=== PATIENT | female | born 1985 | race American Indian/Alaskan Native ===

== ENCOUNTER 2016-10-22 07:44 | Outpatient (CLI) | payer MEDICAID ==
[2016-10-22 08:17] VITALS: BP 124/65
[2016-10-22] MEDS ORDERED: VISTARIL ONE (10:58)
[2016-10-22] MEDS ORDERED: VISTARIL PO ONE (11:30)
== END 2016-10-22 11:18 | disposition home or self-care (01) ==
LOC: TRG 07:44
PROVIDERS: ATTEND Obstetrics & Gynecology
DX: Z34.90 Encounter for supervision of normal pregnancy, unspecified, unspecified trimester (principal); Z3A.00 Weeks of gestation of pregnancy not specified
CPT/HCPCS: 59025; Q0177

== ENCOUNTER 2016-10-23 09:25 | Inpatient (IN) | payer MEDICAID ==
--- NOTE | 2016-10-23 10:02 | Procedure Note ---
OB Delivery Note - Delivery Date of Delivery: 10/23/16 Surgeon: AMARILYS CALVIN Estimated blood loss: 300cc - Vaginal Delivery presentation: vertex Delivery position: OA Intrapartum events: precipitous labor- <3hr Delivery induction: none Delivery monitor: none Route of delivery: Delivery placenta: spontaneous Episiotomy: none Delivery laceration: none Anesthesia: none - A at 1 minute: 9 at 5 minutes: 9 Infant Gender: Female (Del @ 09:33, weight is 7#15 or 3319 gms)
[2016-10-23] MEDS ORDERED: ZOFRAN IV PRN (10:09)
[2016-10-23] MEDS ORDERED: TUCKS PAD TP PRN (10:09)
[2016-10-23] MEDS ORDERED: MILK OF MAGNESIA PO PRN (10:09)
[2016-10-23] MEDS ORDERED: TYLENOL PO PRN (10:09)
[2016-10-23] MEDS ORDERED: DERMOPLAST TP PRN (10:09)
[2016-10-23] MEDS ORDERED: LANSINOH TP PRN (10:09)
[2016-10-23] MEDS ORDERED: DULCOLAX PR PRN (10:09)
[2016-10-23] MEDS ORDERED: ANUCORT-HC PR PRN (10:09)
[2016-10-23] MEDS ORDERED: PHENERGAN PR PRN (10:09)
[2016-10-23] MEDS ORDERED: BENADRYL PO PRN (10:09)
[2016-10-23] MEDS ORDERED: NORCO 5/325 PO PRN (10:09)
[2016-10-23] MEDS ORDERED: PHENERGAN PO PRN (10:09)
--- NOTE | 2016-10-23 10:09 | History and Physical Report ---
History of Present Illness Date of examination: 10/23/16 Date of admission: 10/23/16 09:25 Chief complaint: Precipitous delivery History of present illness: 31-year-old 001 at 40+ weeks presents with precipitous delivery, she is a [employer] patient. care unremarkable per patient. Past History Past Medical History: no pertinent history Past Surgical History: appendectomy [employer] History: denies: chlamydia, gonorrhea, HIV Social history: single. denies: smoking, alcohol abuse, prescription drug abuse , IV drug use - Obstetrical History Expected Date of Delivery: 10/21/16 Actual Gestation: 40 Week(s) 2 Day(s) : 2 Para: 1 Medications and Allergies Allergies Allergy/AdvReac Type Severity Reaction Status Date / Time Penicillins Allergy Swelling Verified 04/10/14 03:42 Home Medications Medication Instructions Recorded Confirmed Last Taken Type No Known Home Medications [No 04/16/14 04/16/14 Unknown History Reported Home Medications] Review of Systems Constitutional: no fever, no chills Cardiovascular: no chest pain, no syncope, no lightheadedness, no shortness of breath Respiratory: no excessive sputum, no shortness of breath, no dyspnea on exertion Gastrointestinal: no nausea, no vomiting - Physical Exam Abdomen: Positive: normal appearance, soft. Negative: tenderness, guarding, rigidity Results All other labs normal. Assessment and Plan PPD# 0: 31 y/o at 40+2 wks with PPT delivery -stable P: -Continue routine care -Anticipate discharge in 2448 hrs. - Patient Problems (1) Precipitous delivery, delivered (current hospitalization) Current Visit: Yes Status: Acute (2) 40 weeks gestation of Current Visit: Yes Status: Acute
[2016-10-23 10:18] LABS: Hematocrit 39.7 % (30.3-42.9); Hemoglobin 13.2 gm/dl (10.1-14.3)
[2016-10-23] MEDS ORDERED: SODIUM CHLORIDE FLUSH SYRINGE 10 ML IV NR (11:00)
[2016-10-23] MEDS ORDERED: PITOCin/NS 20 UNIT/1000ML DRIP 1,000 ML IV SCH (11:00)
[2016-10-23 11:51] LABS: Hematocrit 39.9 % (30.3-42.9); Hemoglobin 13.2 gm/dl (10.1-14.3); Mean Corpuscular HGB Conc 33 % (30-34); Mean Corpuscular Hemoglobin 30 pg (28-32); Mean Corpuscular Volume 90 fl (79-97); Platelet Count 169 K/mm3 (140-440); Red Blood Count 4.45 M/mm3 (3.65-5.03); Red Cell Distribution Width 14.1 % (13.2-15.2); White Blood Count 8.8 K/mm3 (4.5-11.0)
[2016-10-23] MEDS: MOTRIN PO SCH ×3 (12:19→23:35)
[2016-10-23 22:59] LABS: Hematocrit 34.3 % (30.3-42.9); Hemoglobin 11.3 gm/dl (10.1-14.3)
[2016-10-23] MEDS: FEOSOL PO SCH (23:35)
[2016-10-23] MEDS: COLACE PO SCH (23:35)
[2016-10-24] MEDS: MOTRIN PO SCH ×2 (06:15→12:45)
[2016-10-24 08:15] VITALS: BP 119/68
[2016-10-24] MEDS: COLACE PO SCH (09:52)
[2016-10-24] MEDS: FEOSOL PO SCH (09:52)
[2016-10-24] MEDS ORDERED: PRENATAL VITAMIN PO SCH (10:00)
--- NOTE | 2016-10-24 11:28 | Progress Note ---
Assessment and Plan A: PPD #1 stable P: Discharge home today Subjective - Subjective Date of service: 10/24/16 Principal diagnosis: Patient reports: appetite normal [place]: doing well Objective - Vital Signs Latest vital signs: Vital Signs Temp Pulse Pulse Resp BP 10/24/16 07:30 98.6 F 59 L 20 119/68 10/23/16 20:00 98.3 F 55 L 18 119/76 10/23/16 17:00 97.8 F 50 L 18 121/68 10/23/16 11:50 98.4 F 45 L 16 118/72 Intake and Output 10/23/16 10/24/16 10/24/16 22:59 06:59 14:59 Intake Total 360 360 Output Total 700 Balance -340 360 Intake: Oral 360 360 Output: Urine 700 Void 700 Other: Total, Intake Amount 360 120 Total, Output Amount 700 # Voids Void 1 - Exam Breasts: Present: deferred Cardiovascular: Present: Regular rate Lungs: Present: Clear to auscultation Abdomen: Present: soft Vulva: both: normal Uterus: Present: fundal height below umbilicus Extremities: Present: normal Deep Tendon Reflex Grade: Normal +2
--- NOTE | 2016-10-24 11:32 | Discharge Summary ---
Providers - Providers Date of Admission: 10/23/16 09:25 Date of discharge: 10/24/16 Attending physician: TALYA JEAN MD Primary care physician: TALYA JEAN MD Hospitalization Reason for admission: active labor Delivery: Episiotomy: none Laceration: none Other procedures: none complications: none Discharge diagnosis: IUP at term delivered Eva baby: female Hospital course: uneventful Condition at discharge: Good Disposition: DISCHARGED TO HOME OR SELFCARE Plan - Provider Discharge Summary Activity: routine, no sex for 6 weeks, no strenuous exercise Diet: routine Instructions: routine Additional instructions: [] Smoking cessation referral if applicable(refer to patient education folder for contact #) [] Refer to [facility] Booklet Call your doctor immediately for: * Fever > 100.5 * Heavy vaginal bleeding ( >1 pad per hour) * Severe persistent headache * Shortness of breath * Reddened, hot, painful area to leg or breast * Drainage or odor from incision. * Keep incision clean and dry at all times and follow doctor's instructions regarding bathing/showering - Follow up plan Follow up: [facility] [Provider Group] - 6 Weeks
== END 2016-10-24 15:14 | disposition home or self-care (01) | DRG 775 ==
LOC: LD 09:25 → OB 11:41
PROVIDERS: ADMIT Obstetrics & Gynecology; ATTEND Obstetrics & Gynecology
PROC: 10E0XZZ Delivery of Products of Conception, External Approach (ICD-10-PCS; principal; 2016-10-23)
DX: O62.3 Precipitate labor (principal); O48.0 Post-term pregnancy; Z3A.40 40 weeks gestation of pregnancy; Z37.0 Single live birth; Z90.49 Acquired absence of other specified parts of digestive tract
CPT/HCPCS: 36415; 85014; 85018; 85027; 86850; 86900; 86901

== ENCOUNTER 2017-01-02 10:18 | Inpatient (IN) | payer MEDICAID ==
[2017-01-02 11:16] LABS: Basophils % (Auto) 0.4 % (0.0-1.8); Eosinophils % (Auto) 0.1 % (0.0-4.3); Hematocrit 41.1 % (30.3-42.9); Hemoglobin 13.3 gm/dl (10.1-14.3); Mean Corpuscular HGB Conc 32 % (30-34); Mean Corpuscular Hemoglobin 28 pg (28-32); Mean Corpuscular Volume 88 fl (79-97); Platelet Count 173 K/mm3 (140-440); Red Blood Count 4.69 M/mm3 (3.65-5.03); Red Cell Distribution Width 12.6 % (13.2-15.2); White Blood Count 14.7 K/mm3 (4.5-11.0)
[2017-01-02 11:25] LABS: Anion Gap 18 mmol/L; BUN/Creatinine Ratio 15.71; Blood Urea Nitrogen 11 mg/dL (7-17); Calcium 9.2 mg/dL (8.4-10.2); Carbon Dioxide 21 mmol/L (22-30); Glucose 102 mg/dL (65-100); Potassium 4.1 mmol/L (3.6-5.0); Sodium 134 mmol/L (137-145)
[2017-01-02] MEDS ORDERED: TYLENOL ONE (22:37)
[2017-01-02] MEDS ORDERED: NACL 0.9% 1000 ML 1,000 ML IV ONE (22:46)
[2017-01-02] MEDS ORDERED: ZOFRAN IV ONE (22:46)
[2017-01-02] MEDS ORDERED: TYLENOL PO ONE (22:46)
[2017-01-02] MEDS ORDERED: MORPHINE IV ONE (22:46)
--- NOTE | 2017-01-02 22:51 | Emergency Department Report ---
HPI - General Chief Complaint: Chest Pain Time Seen by Provider: 01/02/17 22:40 - HPI HPI: Room 4 The patient is a 31-year-old female presenting with a chief complaint of chest pain shortness of breath syncope. The patient is 2 months states she was awakened this morning at 07:00 substernal chest pain. Patient states she began to feel short of breath and she stood up and felt lightheaded and lost consciousness. The patient does admit to a pleuritic component. Patient does admit to nausea vomiting and diaphoresis with her chest pain. The patient currently describes the chest pain is throbbing in nature. The patient admits to a cough that is nonproductive. The patient currently gives her pain a score of 10/10. The patient states she is not breast-feeding Location: Chest Duration: [see above] Quality: Throbbing Severity: 10/10 Modifying factors: [see above] Context: [see above] Mode of transportation: Unknown ED Past Medical Hx - Past Medical History Previous Medical History?: No - Surgical History Past Surgical History?: Yes Hx Appendectomy: Yes - Family History Family history: no significant - Social History Smoking Status: Current Every Day Smoker (1/2 pack per day) Substance Use Type: None (denies illicit drug use) - Medications Home Medications: Home Medications Medication Instructions Recorded Confirmed Last Taken Type No Known Home Medications [No 04/16/14 04/16/14 Unknown History Reported Home Medications] ED Review of Systems ROS: Stated complaint: CHEST PAIN Other details as noted in HPI Comment: All other systems reviewed and negative Constitutional: diaphoresis, fever Eyes: denies: eye pain, eye discharge, vision change ENT: denies: ear pain, throat pain Respiratory: cough, shortness of breath Cardiovascular: chest pain Endocrine: no symptoms reported Gastrointestinal: nausea, vomiting Genitourinary: denies: urgency, dysuria, discharge Musculoskeletal: denies: back pain, joint swelling, arthralgia Skin: denies: rash, lesions Neurological: other (syncope). denies: headache, weakness, paresthesias Psychiatric: denies: anxiety, depression Hematological/Lymphatic: denies: easy bleeding, easy bruising Physical Exam - Physical Exam Vital Signs: Vital Signs 01/02/17 01/02/17 01/02/17 10:32 20:02 22:44 Temperature 99.8 F H 100.0 F H 102.7 F H Pulse Rate 93 H 114 H Respiratory 24 20 Rate Blood Pressure 132/92 124/82 O2 Sat by Pulse 97 96 Oximetry Physical Exam: GENERAL: The patient is well-developed well-nourished female lying on stretcher. Be in moderate discomfort. [] HEENT: Normocephalic. Atraumatic. Extraocular motions are intact. Patient has moist mucous membranes. NECK: Supple. Trachea midline CHEST/LUNGS: Poor inspiratory effort. Decreased breath sounds throughout. There is no respiratory distress noted. HEART/CARDIOVASCULAR: Regular. There is tachycardia. There is no gallop rub or murmur. ABDOMEN: Abdomen is soft, nontender. Patient has normal bowel sounds. There is no abdominal distention. SKIN: There is no rash. There is no edema. There is no diaphoresis. NEURO: The patient is awake, alert, and oriented. The patient is cooperative. The patient has normal speech MUSCULOSKELETAL: There is no evidence of acute injury. ED Course Vital Signs 01/02/17 01/02/17 01/02/17 10:32 20:02 22:44 Temperature 99.8 F H 100.0 F H 102.7 F H Pulse Rate 93 H 114 H Respiratory 24 20 Rate Blood Pressure 132/92 124/82 O2 Sat by Pulse 97 96 Oximetry ED Medical Decision Making - Lab Data Result diagrams: 01/02/17 10:49 01/02/17 10:49 Laboratory Tests 01/02/17 01/02/17 01/02/17 10:49 10:49 13:51 WBC 14.7 H RBC 4.69 Hgb 13.3 Hct 41.1 MCV 88 MCH 28 MCHC 32 RDW 12.6 L Plt Count 173 Lymph % (Auto) 9.2 L [place] % (Auto) 5.8 Eos % (Auto) 0.1 Baso % (Auto) 0.4 Lymph # 1.4 [place] # 0.9 H Eos # 0.0 Baso # 0.1 Seg Neutrophils % 84.5 H Seg Neutrophils # 12.4 H Carbon Dioxide 21 L Anion Gap 18 BUN 11 Creatinine 0.7 Estimated GFR > 60 BUN/Creatinine Ratio 15.71 Glucose 102 H Calcium 9.2 Troponin T < 0.010 < 0.010 01/02/17 15:30 WBC RBC Hgb Hct MCV MCH MCHC RDW Plt Count Lymph % (Auto) [place] % (Auto) Eos % (Auto) Baso % (Auto) Lymph # [place] # Eos # Baso # Seg Neutrophils % Seg Neutrophils # Carbon Dioxide Anion Gap BUN Creatinine Estimated GFR BUN/Creatinine Ratio Glucose Calcium Troponin T < 0.010 Sodium 134, potassium 4.1, chloride 99.0 - EKG Data -: EKG Interpreted by Me EKG shows normal: sinus rhythm Rate: normal - EKG Data When compared to previous EKG there are: previous EKG unavailable Interpretation: other (ischemic changes seen) - Radiology Data Radiology results: report reviewed (CT chest), image reviewed (CT chest) CT chest (read by radiologist)-right middle and lower lobe pneumonia. No evidence of pulmonary. - Differential Diagnosis pneumonia, PE, ACS, pericarditis, GERD Critical care attestation.: If time is entered above; I have spent that time in minutes in the direct care of this critically ill patient, excluding procedure time. ED Disposition Clinical Impression: Chest pain, Syncope, Right middle lobe pneumonia, Right lower lobe pneumonia, Fever, Leukocytosis Disposition: OP ADMITTED IP TO THIS HOSP Is pt being admited?: Yes Does the pt Need Aspirin: Yes Condition: Fair Instructions: Chest Pain (ED), Syncope (ED), Bacterial Pneumonia (ED) Referrals: PRIMARY CARE, [Primary Care Provider] - 3-5 Days Time of Disposition: 01:16 (hospitalist paged)
[2017-01-02] MEDS ORDERED: NACL ONE (23:20)
[2017-01-02] MEDS ORDERED: MORPHINE ONE (23:23)
--- NOTE | 2017-01-03 00:37 | Cat Scan Report ---
FINAL REPORT PROCEDURE: CT ANGIO CHEST TECHNIQUE: Computerized tomographic angiography of the chest was performed after the IV injection of iodinated nonionic contrast including image processing. The image data was postprocessed using 2-dimensional multiplanar reformatted (MPR) and 3-dimensional (MIP and/or volume rendered) techniques. HISTORY: chest pain, fever, syncope COMPARISON: No prior studies are available for comparison. FINDINGS: Heart and pericardium: Normal. Thoracic aorta: Normal. Pulmonary vasculature: Normal. Lymph nodes: No enlarged thoracic lymph nodes. Lungs: There is a consolidating infiltrate identified in the right middle lung. Mild infiltrate right lower lung. The left lung is clear. The central airway is patent.. Pleural space: No effusion, thickening, or pneumothorax. Musculoskeletal structures: No significant abnormality. Upper abdominal structures: No significant abnormality. IMPRESSION: Right middle and lower lung pneumonia. No evidence of pulmonary arterial emboli.
[2017-01-03] MEDS ORDERED: LEVAQUIN 750MG/150ML 750 MG/150 ML BAG IV ONE (01:13)
[2017-01-03] MEDS ORDERED: DULCOLAX PR PRN (02:06)
[2017-01-03] MEDS ORDERED: PERCOCET 5/325 PO PRN (02:06)
[2017-01-03] MEDS ORDERED: ZOFRAN IV PRN (02:06)
[2017-01-03] MEDS ORDERED: PROVENTIL IH PRN (02:06)
[2017-01-03] MEDS ORDERED: TYLENOL PO PRN (02:06)
[2017-01-03] MEDS ORDERED: MILK OF MAGNESIA PO PRN (02:06)
--- NOTE | 2017-01-03 02:20 | History and Physical Report ---
History of Present Illness Date of examination: 01/03/17 History of present illness: 31-year-old woman, 3 months , no medical problems comes emergency room today because she passed out while she was feeding her daughter, syncopal episode lasted for 15 seconds. Patient also complaining of chest pain and epigastric area she described as a sharp, constant pain, intensity 5/10, worse with coughing. Patient also gets right side pain when she coughs. She has been febrile in the emergency room, denies any chills Patient denies chest pain, palpitation, shortness of breath, cough, abdominal pain, hematochezia, dysuria, frequency, focal weakness, dysarthria, fever chills , polydipsia polyuria, hot or cold intolerance, easy bruisability, or rash or bleeding from mucosal membrane, rhinorrhea, epistaxis, earache, tinnitus, blurry vision, eye discharge, anxiety, depression. Other review of systems negative PAST SURGICAL HISTORY: None SOCIAL HISTORY: Smoke a pack a day, no alcohol or drugs FAMILY HISTORY: Hypertension Medications and Allergies Allergies Allergy/AdvReac Type Severity Reaction Status Date / Time Penicillins Allergy Swelling Verified 04/10/14 03:42 Home Medications Medication Instructions Recorded Confirmed Last Taken Type ALBUTEROL Inhaler [ProAir HFA 2 puff IH QID PRN #1 unit 01/05/17 Unknown Rx Inhaler] Acetaminophen [Acetaminophen TAB] 650 mg PO Q4H PRN #30 tablet 01/05/17 Unknown Rx Levofloxacin [Levaquin TAB] 750 mg PO Q24HR #5 day 01/05/17 Unknown Rx oxyCODONE /ACETAMINOPHEN [Percocet 1 tab PO Q6H PRN #15 tablet 01/05/17 Unknown Rx 5/325 mg] Active Meds: Active Medications Levofloxacin/Dextrose (Levaquin 750mg/150ml) 750 mg in 150 mls @ 100 mls/hr IV ONCE ONE Stop: 01/03/17 02:42 Last Admin: 01/03/17 02:00 Dose: 100 mls/hr Exam - Physical Exam Narrative exam: Gen. appearance: Patient lying in bed, no apparent distress HEENT: Normocephalic, atraumatic, pupils equally round and reactive to light, extraocular movement intact, and no sclericterus,. No JVD or thyromegaly or nodule,neck supple, no carotid bruit ,mucous membranes moist, no exudate or erythema Heart: S1, S2, regular rate and rhythm Lungs: Crackles on The Right, breathing comfortable Abdomen: Positive bowel sounds, nontender, nondistended, no organomegaly Extremity: No edema, cyanosis, clubbing Skin: No rash, nodules, warm, dry Neuro: Oriented 3, cranial nerves II-12 intact, speech is fluent, motor and sensory intact - Constitutional Vitals: Temp Pulse Resp BP Pulse Ox 99.5 F 89 27 H 131/92 95 01/03/17 01:54 01/03/17 01:54 01/03/17 01:41 01/03/17 01:41 01/03/17 01:41 Results - Labs CBC & Chem 7: 01/05/17 05:08 01/05/17 05:08 Labs: Abnormal lab results 01/02/17 01/02/17 Range/Units 10:49 10:49 WBC 14.7 H (4.5-11.0) K/mm3 RDW 12.6 L (13.2-15.2) % Lymph % (Auto) 9.2 L (13.4-35.0) % [place] # 0.9 H (0.0-0.8) K/mm3 Seg Neutrophils % 84.5 H (40.0-70.0) % Seg Neutrophils # 12.4 H (1.8-7.7) K/mm3 Carbon Dioxide 21 L (22-30) mmol/L Glucose 102 H (65-100) mg/dL - Imaging and Cardiology CT scan - chest: report reviewed Assessment and Plan Hospital-acquired pneumonia Pleuritic chest pain secondary to #1 Syncope Admits medicine Start IV antibiotic, obtain sputum culture, blood culture Check cardiac enzymes, echo, consult cardiology Start DVT prophylaxis
[2017-01-03 03:27] LABS: Bacteria,Urine 1+ /HPF (Negative); Bilirubin,Urine NEG (Negative); Blood,Urine SM (Negative); Ketones,Urine NEG (Negative); Leukocyte Esterase,Urine TR (Negative); Mucus,Urine FEW /HPF; Nitrite,Urine NEG (Negative); Protein,Urine <15 mg/dL mg/dL (Negative); Urobilinogen,Urine < 2.0 mg/dL (<2.0)
[2017-01-03 06:57] LABS: Creatine Kinase MB < 1.0 ng/mL (0.0-4.0)
[2017-01-03 08:41] LABS: Creatine Kinase 86 units/L (30-135)
[2017-01-03] MEDS ORDERED: LOVENOX SUB-Q SCH (10:00)
[2017-01-03] MEDS: LEVAQUIN 750MG/150ML 750 MG/150 ML BAG IV SCH (11:00)
--- NOTE | 2017-01-03 11:11 | Admit Criteria Form ---
Admission Criteria Documentation: PNEUMONIA, COMMUNITY ACQUIRED Clinical Indications for Admission to Inpatient Care ( Place 'X' for any and all applicable criteria): Admission is indicated for ANY ONE of the following (1)(2)(3): [ ]I. Hypoxemia indicated by ANY ONE of the following: [ ]a) Oxygen saturation less than 90% while breathing room air [ ]b) PO2 less than 60 mm Hg (8.0 kPa) while breathing room air [ ]c) Chronic lung disease with significant deterioration from baseline oxygenation [X]II. Appropriate diagnostic testing and treatment unavailable in outpatient or recovery facility (eg,testing or infection control measures unavailable(10) [ ]III. Moderate-risk or high-risk category patients (Pneumonia Severity Index (PSI) class IV or V, or CURB-65 score of 3 or greater). [ ]IV. Outpatient treatment failure as indicated by ANY ONE of the following(9) : [ ]a) Failure to respond to antibiotic (eg, resistant organism) [ ]b) Clinically significant adverse effects from medication (eg, vomiting) [ ]c) Complications of pneumonia (eg, empyema, bacteremia) [ ]d) Significant worsening of comorbid cond necessitating inpatient care (eg, chronic heart failure) [ ]V. Intermediate-risk category patients (eg, PSI class III or CURB-65 score 2) who do not improve with initial therapy and observation. [ ]. Immunocompromised patients (eg, AIDS, chronic steroid use) at moderate or high risk based on clinical evaluation. [ ]VII. Complicated pleural effusions (eg, exudative, loculated) [ ]VIII.Hemodynamic instability [ ] IX. Altered mental status that is severe or persistent. [ ]X. Dehydration that is severe or persistent. [ ]XI. Bacteremia [ ]XII. Respiratory finding (eg. tachypnea) that do not respond to outpatient or observation care treatment Extended stay beyond goal length of stay may be needed for (20) [ ]a) Unclear diagnosis [ ]b) Pleural disease [ ]c) Severe pneumonia or treatment failure (25 [ ]d) Respiratory failure (anticipate invasive or noninvasive ventilatory support) [ ]e) Abnormal serum electrolytes (serum Na concentration less than 135 mEq/L (mmol/L) (32)(33) [ ]f) Clinically significant comorbid illness (eg, heart failure, atrial fibrillation with rapid heart rate, alcohol withdrawal, renal insufficiency)(34)(35) [ ]g) Comorbid acute exacerbation of COPD(36) [ ]h) Concomitant diagnosis of malignancy that may be associated with malnutrition, immunologic impairment, or bronchial obstruction. [ ]i) Concomitant altered mental status [ ]j) Culture-identified Gram-negative or antibiotic-resistant organism (eg, Pseudomonas, methicillin-resistant Staphylococcus aureus)(30) [ ]k) Healthcare-associated pneumonia The original [employer] content created by [employer] has been revised. The portions of the content which have been revised are identified through the use of italic text or in bold, and [facility] has neither reviewed nor approved the modified material. All other unmodified content is copyright [employer]. Please see references footnoted in the original [facility] edition 2016 Admission Criteria Met: Yes
[2017-01-03] MEDS ORDERED: FLUARIX QUAD 2016-2017(36 MOS+) IM ONE (12:00)
--- NOTE | 2017-01-03 13:07 | Consultation ---
History of Present Illness Consult date: 01/03/17 Consult reason: syncope History of present illness: At about 6 AM yesterday, she claims that she woke up from her sleep with a throbbing substernal chest pain. Upon standing up, she developed shortness of breath. The next thing she remembers is waking up on the floor. She claims that she was lightheaded upon arousal. She has continued to experience recurrent chest pain with a pleuritic component. She claims that she had some chills and fever after the event. In the ER, chest CT scan was negative for pulmonary embolism. However, it revealed right middle lobe and left lower lobe pneumonia. Cardiac enzymes are negative for acute myocardial infarction. Notably, she delivered a baby on 10/23/2016. Past History Past Medical History: No medical history Past Surgical History: appendectomy Social history: lives with family, smoking. denies: alcohol abuse Family history: no significant family history Medications and Allergies Allergies Allergy/AdvReac Type Severity Reaction Status Date / Time Penicillins Allergy Swelling Verified 04/10/14 03:42 Home Medications Medication Instructions Recorded Confirmed Last Taken Type No Known Home Medications [No 04/16/14 01/02/17 Unknown History Reported Home Medications] Active Meds: Active Medications Acetaminophen (Tylenol) 650 mg PO Q4H PRN PRN Reason: Pain MILD(1-3)/Fever >100.5/PATEL Albuterol (Proventil) 2.5 mg IH Q3HRT PRN PRN Reason: Shortness Of Breath Bisacodyl (Dulcolax) 10 mg [place] QDAY PRN PRN Reason: Constipation unrelieved by MOM Enoxaparin Sodium (Lovenox) 40 mg SUB-Q QDAY [facility] Last Admin: 01/03/17 10:59 Dose: 40 mg Levofloxacin/Dextrose (Levaquin 750mg/150ml) 750 mg in 150 mls @ 100 mls/hr IV Q24HR APARNA PRN Reason: Protocol Last Admin: 01/03/17 11:00 Dose: 100 mls/hr Magnesium Hydroxide (Milk Of Magnesia) 30 ml PO Q4H PRN PRN Reason: Constipation Ondansetron HCl (Zofran) 4 mg IV Q8H PRN PRN Reason: N/V unrelieved by Reglan Oxycodone/Acetaminophen (Percocet 5/325) 1 tab PO Q6H PRN PRN Reason: Pain, Moderate (4-6) Last Admin: 01/03/17 08:38 Dose: 1 tab Review of Systems Constitutional: fever, chills Ears, nose, mouth and throat: no ear pain, no ear discharge, no sore throat Cardiovascular: chest pain, syncope, no orthopnea, no palpitations, no edema Respiratory: cough with sputum, shortness of breath Gastrointestinal: no abdominal pain, no nausea, no vomiting, no diarrhea, no constipation Genitourinary Female: no dysuria, no urinary frequency Rectal: no pain, no bleeding Musculoskeletal: no neck stiffness, no neck pain, no myalgias Integumentary: no rash, no pruritis Neurological: no weakness, no parathesias, no numbness, no tingling, no headaches Endocrine: no cold intolerance, no heat intolerance Hematologic/Lymphatic: no easy bruising, no easy bleeding Allergic/Immunologic: no urticaria, no wheezing Physical Examination Vital Signs Last Vital Signs Temp 97.7 F 01/03/17 09:30 Pulse 110 H 01/03/17 09:30 Resp 16 01/03/17 09:30 BP 135/82 01/03/17 09:30 Pulse Ox 95 01/03/17 09:33 General appearance: no acute distress HEENT: Positive: EOMI, Normocephaly, Mucus Membranes Moist Neck: Positive: neck supple, trachea midline Cardiac: Positive: Reg Rate and Rhythm, S1/S2 Lungs: Positive: Rhonchi (bilaterally) Neuro: Positive: Grossly Intact Abdomen: Positive: Soft, Active Bowel Sounds. Negative: Tender Skin: Positive: Clear. Negative: Rash Musculoskeletal: Normal Range of Motion Extremities: Present: normal. Absent: edema Results 01/02/17 10:49 01/02/17 10:49 Cardiac Enzymes 01/03/17 Range/Units 05:59 CK-MB (CK-2) < 1.0 (0.0-4.0) ng/mL - Imaging and Cardiology EKG: image reviewed EKG interpretations - Telemetry EKG Rhythm: Sinus Rhythm - EKG Sinus rhythms and dysrhythmias: sinus rhythm Myocardial infarction: septal CT (old age or ind Assessment and Plan The exact etiology of her syncope is uncertain. Obtain orthostatic parameters and echocardiogram. - Patient Problems (1) Syncope Current Visit: Yes Status: Acute Qualifiers: Syncope type: S Encounter type: E (2) Atypical chest pain Current Visit: Yes Status: Acute (3) Bilateral pneumonia Current Visit: Yes Status: Acute Qualifiers: Pneumonia type: P Aspiration pneumonia type: A Lung location: L
[2017-01-03 14:31] LABS: Creatine Kinase 73 units/L (30-135)
[2017-01-03 14:51] LABS: Creatine Kinase MB < 1.0 ng/mL (0.0-4.0)
--- NOTE | 2017-01-03 15:06 | Event Note ---
Date: 01/03/17 Pt seen and examined. 31-year-old woman, 3 months delivered baby on 10/23/16, no past medical problems comes emergency room because of an syncopal episode while she was feeding her daughter, syncopal episode lasted for 15 seconds. CTA chest in the Er showed Rt middle and lower lobe PNA, temp of 102.7 and elevated white count. Cont current mx for sepsis (present since admission) with PNA as dictated in the HPI.
[2017-01-04 05:58] LABS: Basophils % (Auto) 0.4 % (0.0-1.8); Eosinophils % (Auto) 0.1 % (0.0-4.3); Hematocrit 37.8 % (30.3-42.9); Hemoglobin 12.4 gm/dl (10.1-14.3); Mean Corpuscular HGB Conc 33 % (30-34); Mean Corpuscular Hemoglobin 29 pg (28-32); Mean Corpuscular Volume 87 fl (79-97); Platelet Count 136 K/mm3 (140-440); Red Blood Count 4.34 M/mm3 (3.65-5.03); Red Cell Distribution Width 12.4 % (13.2-15.2)
[2017-01-04 06:23] LABS: Anion Gap 18 mmol/L; Blood Urea Nitrogen 6 mg/dL (7-17); Calcium 9.1 mg/dL (8.4-10.2); Carbon Dioxide 21 mmol/L (22-30); Chloride 100.4 mmol/L (98-107); Glucose 91 mg/dL (65-100); Potassium 3.7 mmol/L (3.6-5.0); Sodium 136 mmol/L (137-145)
[2017-01-04] MEDS: LEVAQUIN 750MG/150ML 750 MG/150 ML BAG IV SCH (09:47)
--- NOTE | 2017-01-04 11:42 | Progress Note ---
Assessment and Plan Obtain orthostatic parameters. Continue current management. - Patient Problems (1) Syncope Current Visit: Yes Status: Acute Qualifiers: Syncope type: S Encounter type: E (2) Atypical chest pain Current Visit: Yes Status: Acute (3) Bilateral pneumonia Current Visit: Yes Status: Acute Qualifiers: Pneumonia type: P Aspiration pneumonia type: A Lung location: L Subjective Date of service: 01/04/17 Principal diagnosis: Syncope, Atypical CP, Pneumonia Interval history: She still has intermittent chest pain. Echocardiogram was reviewed which showed normal LV systolic function. Orthostatic parameters were not obtained as ordered yesterday. Objective Vital Signs Last Vital Signs Temp 98.5 F 01/04/17 08:33 Pulse 70 01/04/17 10:00 Resp 20 01/04/17 10:00 BP 128/86 01/04/17 08:33 Pulse Ox 98 01/04/17 10:00 - Physical Examination General: No Apparent Distress HEENT: Positive: EOMI, Normocephaly, Mucus Membranes Moist Neck: Positive: neck supple, trachea midline Cardiac: Positive: Reg Rate and Rhythm, S1/S2 Lungs: Positive: Rhonchi Neuro: Positive: Grossly Intact Abdomen: Positive: Soft, Active Bowel Sounds. Negative: Tender Skin: Positive: Clear. Negative: Rash Musculoskeletal: Normal Range of Motion Extremities: Present: normal. Absent: edema - Labs and Meds Cardiac Enzymes 01/03/17 Range/Units 13:54 CK-MB (CK-2) < 1.0 (0.0-4.0) ng/mL CBC 01/04/17 Range/Units 04:50 WBC 16.0 H (4.5-11.0) K/mm3 RBC 4.34 (3.65-5.03) M/mm3 Hgb 12.4 (10.1-14.3) gm/dl Hct 37.8 (30.3-42.9) % Plt Count 136 L (140-440) K/mm3 Lymph # 1.2 (1.2-5.4) K/mm3 [place] # 0.8 (0.0-0.8) K/mm3 Eos # 0.0 (0.0-0.4) K/mm3 Baso # 0.1 (0.0-0.1) K/mm3 Comprehensive Metabolic Panel 01/04/17 Range/Units 04:50 Sodium 136 L (137-145) mmol/L Potassium 3.7 (3.6-5.0) mmol/L Chloride 100.4 (98-107) mmol/L Carbon Dioxide 21 L (22-30) mmol/L BUN 6 L (7-17) mg/dL Creatinine 0.5 L (0.7-1.2) mg/dL Glucose 91 (65-100) mg/dL Calcium 9.1 (8.4-10.2) mg/dL - Imaging and Cardiology EKG: image reviewed - EKG Sinus rhythms and dysrhythmias: sinus rhythm Myocardial infarction: septal AR (old age or ind
--- NOTE | 2017-01-04 15:14 | Progress Note ---
Assessment and Plan Assessment and plan: Patient is a 31-year-old woman who is 3 months presents with syncopal episode. She had shortness of breath with severe pruritic cough. Then She stood up to walk to go get her baby a bottle of milk when she developed lightheadedness and transient loss of consciousness. CTA of the chest showed right middle and lower lobe pneumonia but no PE. Echocardiogram shows trace MR, mild TR estimated EF 55-60% 1. Sepsis due to right middle and lower lobe pneumonia, aspiration type: IV antibiotics, she is on 2 L oxygen which on a wean off, possibly acute hypoxic respiratory failure present on admission the pulse ox under 90% 2. Syncopal, Cardiology is evaluating. 3. Thrombocytopenia, too acute to be HIT, will stopped Lovenox and monitor try to wean off o2 anticipate discharge in 1-2 days orthostatic ordered by Cardiology. History Interval history: Patient seen and examined. Follow up on syncope. Overnight uneventful. No cp, sob, n/v or severe headaches. Imaging, old records, testing, labs, nursing notes reviewed. Plan discussed with patient. Patient is on 2 L oxygen Hospitalist Physical - Physical exam Narrative exam: GEN: WDWN, NAD, AWAKE, ALERT, ORIENTATED 3 HEENT: NCAT, PERRL, EOMI, OP CLEAR NECK: SUPPLE, NO THYROMEGALY, NO JVD, NO LAD CVS: RRR, NORMAL S1S2 LUNGS/CHEST: Bibasilar crackles with coarse right sided breath sounds, NORMAL CHEST EXPANSION B, GOOD AIR ENTRY B ABD: SOFT NTND, GBS, NO REBOUND OR GUARDING EXT/SKIN: NO SIGNIFICANT EDEMA OR RASH MSK: FROM X 4 EXTREMITIES NEURO: CN 2-12 GROSSLY INTACT, NO new FOCAL DEFICITS PSY: CALM - Constitutional Vitals: Temp Pulse Resp BP Pulse Ox 98.2 F 75 20 111/72 97 01/04/17 13:02 01/04/17 13:02 01/04/17 13:02 01/04/17 13:02 01/04/17 13:02 General appearance: Present: no acute distress Results - Labs CBC & Chem 7: 01/04/17 04:50 01/04/17 04:50 Labs: Laboratory Last Values WBC 16.0 K/mm3 (4.5-11.0) H 01/04/17 04:50 RBC 4.34 M/mm3 (3.65-5.03) 01/04/17 04:50 Hgb 12.4 gm/dl (10.1-14.3) 01/04/17 04:50 Hct 37.8 % (30.3-42.9) 01/04/17 04:50 MCV 87 fl (79-97) 01/04/17 04:50 MCH 29 pg (28-32) 01/04/17 04:50 MCHC 33 % (30-34) 01/04/17 04:50 RDW 12.4 % (13.2-15.2) L 01/04/17 04:50 Plt Count 136 K/mm3 (140-440) L 01/04/17 04:50 Lymph % (Auto) 7.6 % (13.4-35.0) L 01/04/17 04:50 [place] % (Auto) 5.1 % (0.0-7.3) 01/04/17 04:50 Eos % (Auto) 0.1 % (0.0-4.3) 01/04/17 04:50 Baso % (Auto) 0.4 % (0.0-1.8) 01/04/17 04:50 Lymph # 1.2 K/mm3 (1.2-5.4) 01/04/17 04:50 [place] # 0.8 K/mm3 (0.0-0.8) 01/04/17 04:50 Eos # 0.0 K/mm3 (0.0-0.4) 01/04/17 04:50 Baso # 0.1 K/mm3 (0.0-0.1) 01/04/17 04:50 Seg Neutrophils % 86.8 % (40.0-70.0) H 01/04/17 04:50 Seg Neutrophils # 13.9 K/mm3 (1.8-7.7) H 01/04/17 04:50 Sodium 136 mmol/L (137-145) L 01/04/17 04:50 Potassium 3.7 mmol/L (3.6-5.0) 01/04/17 04:50 Chloride 100.4 mmol/L (98-107) 01/04/17 04:50 Carbon Dioxide 21 mmol/L (22-30) L 01/04/17 04:50 Anion Gap 18 mmol/L 01/04/17 04:50 BUN 6 mg/dL (7-17) L 01/04/17 04:50 Creatinine 0.5 mg/dL (0.7-1.2) L 01/04/17 04:50 Estimated GFR > 60 ml/min 01/04/17 04:50 BUN/Creatinine Ratio 12.00 % 01/04/17 04:50 Glucose 91 mg/dL (65-100) 01/04/17 04:50 Calcium 9.1 mg/dL (8.4-10.2) 01/04/17 04:50 Total Creatine Kinase 73 units/L (30-135) 01/03/17 13:54 CK-MB (CK-2) < 1.0 ng/mL (0.0-4.0) 01/03/17 13:54 CK-MB (CK-2) Rel Index 1.3 (0-4) 01/03/17 13:54 Troponin T < 0.010 ng/mL (0.00-0.029) 01/03/17 13:54 Urine Color Straw (Yellow) 01/03/17 02:30 Urine Turbidity Clear (Clear) 01/03/17 02:30 Urine pH 6.0 (5.0-7.0) 01/03/17 02:30 Ur Specific [place] 1.043 (1.003-1.030) H 01/03/17 02:30 Urine Protein <15 mg/dl mg/dL (Negative) 01/03/17 02:30 Urine Glucose (UA) Neg mg/dL (Negative) 01/03/17 02:30 Urine Ketones Neg mg/dL (Negative) 01/03/17 02:30 Urine Blood Sm (Negative) 01/03/17 02:30 Urine Nitrite Neg (Negative) 01/03/17 02:30 Urine Bilirubin Neg (Negative) 01/03/17 02:30 Urine Urobilinogen < 2.0 mg/dL (<2.0) 01/03/17 02:30 Ur Leukocyte Esterase Tr (Negative) 01/03/17 02:30 Urine WBC (Auto) 3.0 /HPF (0.0-6.0) 01/03/17 02:30 Urine RBC (Auto) 1.0 /HPF (0.0-6.0) 01/03/17 02:30 U Epithel Cells (Auto) 8.0 /HPF (0-13.0) 01/03/17 02:30 Urine Bacteria (Auto) 1+ /HPF (Negative) 01/03/17 02:30 Urine Mucus Few /HPF 01/03/17 02:30
[2017-01-05 05:47] LABS: Hematocrit 38.1 % (30.3-42.9); Hemoglobin 12.7 gm/dl (10.1-14.3); Mean Corpuscular HGB Conc 33 % (30-34); Mean Corpuscular Hemoglobin 29 pg (28-32); Mean Corpuscular Volume 87 fl (79-97); Platelet Count 178 K/mm3 (140-440); Red Blood Count 4.37 M/mm3 (3.65-5.03); Red Cell Distribution Width 12.2 % (13.2-15.2); White Blood Count 9.6 K/mm3 (4.5-11.0)
[2017-01-05 06:04] LABS: Anion Gap 17 mmol/L; Blood Urea Nitrogen 7 mg/dL (7-17); Calcium 8.9 mg/dL (8.4-10.2); Carbon Dioxide 22 mmol/L (22-30); Chloride 100.6 mmol/L (98-107); Glucose 85 mg/dL (65-100); Potassium 3.7 mmol/L (3.6-5.0); Sodium 136 mmol/L (137-145)
[2017-01-05 09:09] VITALS: BP 121/77
[2017-01-05] MEDS ORDERED: LEVAQUIN PO SCH (10:00)
--- NOTE | 2017-01-05 10:53 | Discharge Summary ---
Providers - Providers Date of Admission: 01/03/17 02:06 Date of discharge: 01/05/17 Attending physician: VIKI SURESH Primary care physician: PHONE TECHNICIAN Hospitalization Condition: Stable Hospital course: Patient is a 31-year-old woman who is 3 months presents with syncopal episode. She had shortness of breath with severe pruritic cough. Then She stood up to walk to go get her baby a bottle of milk when she developed lightheadedness and transient loss of consciousness. CTA of the chest showed right middle and lower lobe pneumonia but no PE. Echocardiogram shows trace MR, mild TR estimated EF 55-60% - Sepsis due to right middle and lower lobe pneumonia, aspiration type: IV antibiotics, she is on 2 L oxygen which on a wean off, possibly acute hypoxic respiratory failure present on admission the pulse ox under 90% - Syncopal, Cardiology is evaluating. - Thrombocytopenia, too acute to be HIT, will stopped Lovenox and monitor weaned off o2 01/04/17, suspected acute hypoxic respiratory failure, poa now resolved anticipate discharge Disposition: DISCHARGED TO HOME OR SELFCARE Time spent for discharge: 35 minutes Core Measure Documentation - Palliative Care Palliative Care/ Comfort Measures: Not Applicable - Core Measures Any of the following diagnoses?: none - VTE Discharge Requirements Deep Vein Thrombosis/Pulmonary Embolism Present on Admission: No Has pt received <5 days of overlap therapy or INR<2.0: No Anticoagulant overlap therapy prescribed at discharge: No Contraindication No Overlap Therapy order at DC: Not Indicated Exam - Physical Exam Narrative exam: GEN: WDWN, NAD, AWAKE, ALERT, ORIENTATED 3 HEENT: NCAT, PERRL, EOMI, OP CLEAR NECK: SUPPLE, NO THYROMEGALY, NO JVD, NO LAD CVS: RRR, NORMAL S1S2 LUNGS/CHEST: Bibasilar crackles with coarse right sided breath sounds, NORMAL CHEST EXPANSION B, GOOD AIR ENTRY B ABD: SOFT NTND, GBS, NO REBOUND OR GUARDING EXT/SKIN: NO SIGNIFICANT EDEMA OR RASH MSK: FROM X 4 EXTREMITIES NEURO: CN 2-12 GROSSLY INTACT, NO new FOCAL DEFICITS PSY: CALM - Constitutional Vitals: Temp Pulse Resp BP Pulse Ox 97.8 F 65 18 121/77 97 01/05/17 09:08 01/05/17 09:59 01/05/17 09:08 01/05/17 09:08 01/05/17 10:00 Plan Activity: other (no strenous activites until cleared by PCP. ) Diet: regular Follow up with: PRIMARY CARE,MD [Primary Care Provider] - 3-5 Days Prescriptions: ALBUTEROL Inhaler [ProAir HFA Inhaler] 2 puff IH QID PRN #1 unit PRN Reason: Shortness Of Breath Levofloxacin [Levaquin TAB] 750 mg PO Q24HR #5 day oxyCODONE /ACETAMINOPHEN [Percocet 5/325 mg] 1 tab PO Q6H PRN #15 tablet PRN Reason: Pain , Severe (7-10)
--- NOTE | 2017-01-05 11:35 | Progress Note ---
Assessment and Plan Stable cardiac status. - Patient Problems (1) Syncope Current Visit: Yes Status: Acute Qualifiers: Syncope type: S Encounter type: E (2) Atypical chest pain Current Visit: Yes Status: Acute (3) Bilateral pneumonia Current Visit: Yes Status: Acute Qualifiers: Pneumonia type: P Aspiration pneumonia type: A Lung location: L Subjective Date of service: 01/05/17 Principal diagnosis: Syncope, Atypical CP, Pneumonia Interval history: Feels better. No complaints. Objective Vital Signs Last Vital Signs Temp 97.8 F 01/05/17 09:08 Pulse 65 01/05/17 09:59 Resp 18 01/05/17 09:08 BP 121/77 01/05/17 09:08 Pulse Ox 97 01/05/17 10:00 - Physical Examination General: No Apparent Distress HEENT: Positive: EOMI, Normocephaly, Mucus Membranes Moist Neck: Positive: neck supple, trachea midline Cardiac: Positive: Reg Rate and Rhythm, S1/S2 Lungs: Positive: clear to auscultation Neuro: Positive: Grossly Intact Abdomen: Positive: Soft, Active Bowel Sounds. Negative: Tender Skin: Positive: Clear. Negative: Rash Musculoskeletal: Normal Range of Motion Extremities: Present: normal. Absent: edema - Labs and Meds CBC 01/05/17 Range/Units 05:08 WBC 9.6 (4.5-11.0) K/mm3 RBC 4.37 (3.65-5.03) M/mm3 Hgb 12.7 (10.1-14.3) gm/dl Hct 38.1 (30.3-42.9) % Plt Count 178 (140-440) K/mm3 Comprehensive Metabolic Panel 01/05/17 Range/Units 05:08 Sodium 136 L (137-145) mmol/L Potassium 3.7 (3.6-5.0) mmol/L Chloride 100.6 (98-107) mmol/L Carbon Dioxide 22 (22-30) mmol/L BUN 7 (7-17) mg/dL Creatinine 0.5 L (0.7-1.2) mg/dL Glucose 85 (65-100) mg/dL Calcium 8.9 (8.4-10.2) mg/dL - Imaging and Cardiology EKG: image reviewed - EKG Sinus rhythms and dysrhythmias: sinus rhythm Myocardial infarction: septal AR (old age or ind
== END 2017-01-05 13:12 | disposition home or self-care (01) | DRG 871 ==
LOC: ED 10:18 → 4A 01-03 02:06
PROVIDERS: ADMIT Internal Medicine; ATTEND Internal Medicine
DX: A41.9 Sepsis, unspecified organism (principal); J69.0 Pneumonitis due to inhalation of food and vomit; R07.89 Other chest pain; D69.6 Thrombocytopenia, unspecified; F17.200 Nicotine dependence, unspecified, uncomplicated; Z82.49 Family history of ischemic heart disease and other diseases of the circulatory system; Z88.0 Allergy status to penicillin
CPT/HCPCS: 36415; 71275; 80048; 81001; 82550; 82553; 84484; 85025; 85027; 87040; 90686; 93005; 93010; 93306; 94760; 96361; 96374; 96375; 99406; J1650; J1956; J2270; J2405; J7030; Q9967